=== PATIENT | male | born 1965 | race Two or more races ===

== ENCOUNTER 2017-12-14 09:05 | Outpatient (CLI) | payer OTHER | END 2017-12-14 09:25 | disposition home or self-care (01) | LOC: LAB 09:05 | DX: D51.0 Vitamin B12 deficiency anemia due to intrinsic factor deficiency (principal); D51.1 Vitamin B12 deficiency anemia due to selective vitamin B12 malabsorption with proteinuria; I10 Essential (primary) hypertension; B33.22 Viral myocarditis; D50.8 Other iron deficiency anemias; D51.8 Other vitamin B12 deficiency anemias; E03.8 Other specified hypothyroidism; E78.2 Mixed hyperlipidemia ==

== ENCOUNTER 2021-09-18 14:58 | Emergency (ER) | payer OTHER ==
[~2021-09-18] VITALS: Ht 180.3 cm; Wt 104.3 kg
[2021-09-18] MEDS ORDERED: LOSARTAN POTASS50 MG PO (15:15)
[2021-09-18] MEDS ORDERED: NORFLEX100MG PO (23:22)
[2021-09-18] MEDS ORDERED: KETO10TA2 PO (23:22)
== END 2021-09-19 00:39 | disposition home or self-care (01) ==
LOC: ER 14:58
DX: K76.0 Fatty (change of) liver, not elsewhere classified (principal); M54.2 Cervicalgia; I10 Essential (primary) hypertension

== ENCOUNTER 2021-10-31 08:15 | Outpatient (CLI) | payer OTHER ==
[~2021-10-31 08:15] MED LIST: KETO10TA2 PO; LOSARTAN POTASS50 MG PO; NORFLEX100MG PO
== END 2021-10-31 08:37 | disposition home or self-care (01) ==
LOC: TOM 08:15
PROVIDERS: ATTEND Internal Medicine Hematology & Oncology
DX: R22.1 Localized swelling, mass and lump, neck (principal); R97.0 Elevated carcinoembryonic antigen [CEA]

== ENCOUNTER 2021-11-17 08:20 | Outpatient (CLI) | payer OTHER | END 2021-11-17 15:10 | disposition home or self-care (01) | LOC: NUCLEAR 08:20 | PROVIDERS: ATTEND Internal Medicine Hematology & Oncology | DX: C34.91 Malignant neoplasm of unspecified part of right bronchus or lung (principal) ==

== ENCOUNTER 2022-03-14 07:33 | Outpatient (CLI) | payer OTHER | END 2022-03-14 07:34 | disposition home or self-care (01) | LOC: NUCLEAR 07:33 | PROVIDERS: ATTEND Internal Medicine Hematology & Oncology | DX: I82.492 Acute embolism and thrombosis of other specified deep vein of left lower extremity (principal); C34.91 Malignant neoplasm of unspecified part of right bronchus or lung; D51.0 Vitamin B12 deficiency anemia due to intrinsic factor deficiency; B33.22 Viral myocarditis; C79.51 Secondary malignant neoplasm of bone ==